=== PATIENT | male | born 1980 | race Caucasian/White ===

== ENCOUNTER 2018-06-13 01:05 | Emergency (ER) | payer SELFPAY ==
[2018-06-13 01:26] LABS: APPEARANCE,URINE SLIGHTLY-CLOUDY; BILIRUBIN,URINE NEGATIVE (NEGATIVE); COLOR,URINE YELLOW; GLUCOSE, URINE NEGATIVE (NEGATIVE); KETONES,URINE NEGATIVE (NEGATIVE); LEUKOCYTE ESTERASE,URINE LARGE (NEGATIVE); NITRITE,URINE NEGATIVE (NEGATIVE); PROTEIN,URINE NEGATIVE (NEGATIVE); URINE SPECIFIC GRAVITY 1.017; UROBILINOGEN,URINE NEGATIVE mg/dL (<2.0)
[2018-06-13] MEDS ORDERED: NORMAL SALINE 1000 ML 1,000 ML IV ONE (02:49)
[2018-06-13] MEDS ORDERED: KETOROLAC TROMETHAMINE INJ/PF 30 MG/1 ML SDV IV ONE (02:49)
[2018-06-13] MEDS ORDERED: CEFTRIAXONE INJ 1000 MG VIAL IV ONE (02:49)
[2018-06-13 03:03] LABS: ABSOLUTE BASOPHILS # (AUTO) 0.1 10^3/uL (0.0-0.2); ABSOLUTE EOSINOPHILS # (AUTO) 0.2 10^3/uL (0.0-0.6); ABSOLUTE LYMPHOCYTES (AUTO) 2.9 10^3/uL (0.5-4.7); ABSOLUTE MONOCYTES (AUTO) 0.8 10^3/uL (0.1-1.4); ABSOLUTE NEUT (AUTO) 6.9 10^3/uL (1.7-8.2); BASOPHILS % (AUTO) 0.5 % (0-2); EOSINOPHILS % (AUTO) 2.1 % (0-6); HEMATOCRIT 40.2 % (37.9-51.0); LYMPHOCYTES % (AUTO) 26.3 % (13-45); MEAN CORPUSCULAR HEMOGLOBIN 32.7 pg (27.0-33.4); MEAN CORPUSCULAR HGB CONC 34.7 g/dL (32.0-36.0); MEAN CORPUSCULAR VOLUME 94 fl (80-97); MONOCYTES % (AUTO) 7.5 % (3-13); PLATELET COUNT 285 10^3/uL (150-450); RED BLOOD COUNT 4.27 10^6/uL (4.35-5.55); RED CELL DISTRIBUTION WIDTH 13.1 % (11.5-14.0); SEGMENTED NEUTROPHILS % (AUTO) 63.6 % (42-78); TOTAL CELLS COUNTED % (AUTO) 100 %; WHITE BLOOD COUNT 10.9 10^3/uL (4.0-10.5)
[2018-06-13 03:08] LABS: ANION GAP 11 (5-19); BLOOD UREA NITROGEN 12 mg/dL (7-20); CALCIUM 9.9 mg/dL (8.4-10.2); CARBON DIOXIDE 24 mmol/L (22-30); CHLORIDE 106 mmol/L (98-107); GLUCOSE 101 mg/dL (75-110); POTASSIUM 4.4 mmol/L (3.6-5.0); SODIUM 141.1 mmol/L (137-145)
--- NOTE | 2018-06-13 03:18 | ER Document Report ---
ED General - General Chief Complaint: Flank Pain Stated Complaint: Flank pain Time Seen by Provider: 06/13/18 01:50 Notes: Patient is a 38-year-old female with a history of prior urethral strictures, recurrent pyelonephritis who presents with 2 days of bilateral flank pain, worse towards the left with associated dysuria and darkening of the urine. He states that he has had chills but no overt fevers. The pain in his back is described as a throbbing, constant, aching pain. Nothing improves or worsens his symptoms. He has not seen his general doctor regarding today's concerns. The patient also complains of 4-5 months of bloody stools but states this is a secondary concern and not the primary reason for his visit tonight. He has been referred to GI by his primary care doctor for a colonoscopy. - Related Data Allergies/Adverse Reactions: No Known Allergies Allergy (Verified 06/13/18 01:53) Past Medical History - General Information source: Patient - Social History Smoking Status: Never Smoker Frequency of alcohol use: None Drug Abuse: None Lives with: Spouse/Significant other Family History: Reviewed & Not Pertinent Patient has suicidal ideation: No Patient has homicidal ideation: No Renal/ Medical History: Denies: Hx Peritoneal Dialysis Past Surgical History: Reports: Hx Urinary Tract Surgery - urethroplasty Review of Systems - Review of Systems Notes: Constitutional: Negative for fever. HENT: Negative for sore throat. Eyes: Negative for visual changes. Cardiovascular: Negative for chest pain. Respiratory: Negative for shortness of breath. Gastrointestinal: Negative for abdominal pain, vomiting or diarrhea. Genitourinary: Positive for dysuria. Musculoskeletal: Positive for bilateral flank pain Skin: Negative for rash. Neurological: Negative for headaches, weakness or numbness. 10 point ROS negative except as marked above and in HPI. Physical Exam - Vital signs Vitals: Temp Pulse Resp BP Pulse Ox 97.3 F 79 16 121/83 97 06/13/18 01:05 06/13/18 01:05 06/13/18 01:05 06/13/18 01:05 06/13/18 01:05 Interpretation: Normal Notes: PHYSICAL EXAMINATION: GENERAL: Well-appearing, well-nourished and in no acute distress. HEAD: Atraumatic, normocephalic. EYES: Pupils equal round and reactive to light, extraocular movements intact, sclera anicteric, conjunctiva are normal. ENT: nares patent, oropharynx clear without exudates. Moderately dry mucous membranes. NECK: Normal range of motion, supple without lymphadenopathy LUNGS: Breath sounds clear to auscultation bilaterally and equal. No wheezes rales or rhonchi. HEART: Regular rate and rhythm without murmurs ABDOMEN: Soft, nontender, normoactive bowel sounds. No guarding, no rebound. No masses appreciated. Mild bilateral CVA tenderness. EXTREMITIES: Normal range of motion, no pitting or edema. No cyanosis. NEUROLOGICAL: No focal neurological deficits. Moves all extremities spontaneously and on command. PSYCH: Normal mood, normal affect. SKIN: Warm, Dry, normal turgor, no rashes or lesions noted. Course - Re-evaluation Re-evalutation: 06/13/18 03:21 Presentation is most consistent with acute pyelonephritis. Laboratories do demonstrate a large amount of white blood cells in the urine as well as bacteria. Patient has had constitutional symptoms at home. CVA tenderness is present on exam. The remainder laboratories are relatively unremarkable without evidence of renal dysfunction. I do not suspect an acute appendicitis, biliary pathology, pancreatitis, intra-abdominal abscess, or tubo-ovarian abscess based on history and examination. Patient has been given a dose of IV ceftriaxone and a liter of fluids. Patient is able to tolerate oral intake without difficulty. Will be discharged home on 7 day course of cephalexin. A urine culture has been sent. Patient did also complain of bloody stools although notes this is not an acute complaint tonight. His hemoglobin is normal. I have advised him to follow-up for the colonoscopy that has been scheduled by his primary care doctor. At this time will discharge with return precautions and follow-up recommendations. Verbal discharge instructions given a the bedside and opportunity for questions given. Medication warnings reviewed. Patient is in agreement with this plan and has verbalized understanding of return precautions and the need for primary care follow-up in the next 24-72 hours. - Vital Signs Vital signs: Temp Pulse Resp BP Pulse Ox 97.3 F 79 16 121/83 97 06/13/18 01:05 06/13/18 01:05 06/13/18 01:05 06/13/18 01:05 06/13/18 01:05 - Laboratory Result Diagrams: 06/13/18 02:45 06/13/18 02:45 Laboratory results interpreted by me: 06/13/18 06/13/18 01:07 02:45 WBC 10.9 H RBC 4.27 L Urine Blood SMALL H Ur Leukocyte Esterase LARGE H Discharge - Discharge Clinical Impression: Pyelonephritis, Flank pain Condition: Good Disposition: HOME, SELF-CARE Additional Instructions: You have been diagnosed with a condition called pyelonephritis which is an infection involving your kidneys and bladder. You have been given a dose of antibiotics here in the emergency department to help begin to treat this infection. Your also being sent home on antibiotics. Please start taking these later on today when you fill the prescription. Complete the course even if you feel better. Please return if you have persistent vomiting, pass out, have worsening pain, become unable to tolerate fluids, or have any other symptoms that are concerning to you. Please follow-up with your primary care physician in the next 24-48 hours. Prescriptions: Cephalexin Monohydrate [Keflex 500 mg Capsule] 500 mg PO Q6H 7 Days capsule
[2018-06-13] MEDS ORDERED: MORPHINE SULFATE IR 15 MG TABLET PO ONE (03:38)
[2018-06-13] MEDS ORDERED: ACETAMINOPHEN 325 MG TABLET PO ONE (03:38)
[2018-06-13 04:03] VITALS: BP 117/71
== END 2018-06-13 04:05 | disposition home or self-care (01) ==
LOC: ER 01:05
DX: N12 Tubulo-interstitial nephritis, not specified as acute or chronic (principal); K92.1 Melena
CPT/HCPCS: 99284; 96361; 96375; 96365; 36415; 87086; 85025; 87088; 80048; 81001; 87186; J1885; J0696; J7030

== ENCOUNTER 2018-12-20 13:49 | Emergency (ER) | payer SELFPAY ==
[2018-12-20 14:32] VITALS: BP 122/72
--- NOTE | 2018-12-20 14:43 | ER Document Report ---
ED Medical Screen (RME) - General Chief Complaint: Flank Pain Stated Complaint: FLANK PAIN Time Seen by Provider: 12/20/18 14:38 Notes: Patient is a 38-year-old male presenting with "kidney infection". States he is got low back pain and frequency of urination. States it feels like previous times and is had an infection in his kidneys. He denies fevers and shaking chills. Denies active flank pain. Denies nausea vomiting diarrhea. Also requesting to speak to somebody in the mental health area. Denies suicidal and homicidal ideation. I have treated and performed a rapid initial assessment of this patient. A comprehensive ED assessment and evaluation of the patient, analysis of test results and completion of medical decision making process will be conducted by additional ED providers. PHYSICAL EXAMINATION: GENERAL: Well-appearing, well-nourished and in no acute distress. A&Ox4. Answers questions appropriately. LUNGS: Breath sounds clear to auscultation bilaterally and equal. No wheezes rales or rhonchi. HEART: Regular rate and rhythm without murmurs, rubs, gallops. ABDOMEN: Soft, nondistended abdomen. No CVA tenderness Extremities: No cyanosis, clubbing, or edema b/l. NEUROLOGICAL: Normal speech, normal gait. PSYCH: Normal mood, normal affect. TRAVEL OUTSIDE OF THE [place] IN LAST 30 DAYS: No - Related Data Allergies/Adverse Reactions: No Known Allergies Allergy (Verified 12/20/18 14:37) Past Medical History - Social History Frequency of alcohol use: None Drug Abuse: Marijuana - Past Medical History Cardiac Medical History: Reports: Hx Heart Attack Renal/ Medical History: Denies: Hx Peritoneal Dialysis Past Surgical History: Reports: Hx Urinary Tract Surgery - urethroplasty Physical Exam - Vital signs Vitals: Temp Pulse Resp BP Pulse Ox 98.3 F 87 18 122/72 98 12/20/18 14:31 12/20/18 14:31 12/20/18 14:31 12/20/18 14:31 12/20/18 14:31 Course - Vital Signs Vital signs: Temp Pulse Resp BP Pulse Ox 98.3 F 87 18 122/72 98 12/20/18 14:31 12/20/18 14:31 12/20/18 14:31 12/20/18 14:31 12/20/18 14:31
[2018-12-20 15:23] LABS: ABSOLUTE EOSINOPHILS # (AUTO) 0.1 10^3/uL (0.0-0.6); ABSOLUTE LYMPHOCYTES (AUTO) 2.3 10^3/uL (0.5-4.7); ABSOLUTE MONOCYTES (AUTO) 0.7 10^3/uL (0.1-1.4); ABSOLUTE NEUT (AUTO) 7.3 10^3/uL (1.7-8.2); BASOPHILS % (AUTO) 0.4 % (0-2); EOSINOPHILS % (AUTO) 1.3 % (0-6); HEMATOCRIT 42.8 % (37.9-51.0); HEMOGLOBIN 14.8 g/dL (13.5-17.0); LYMPHOCYTES % (AUTO) 22.1 % (13-45); MEAN CORPUSCULAR HEMOGLOBIN 32.9 pg (27.0-33.4); MEAN CORPUSCULAR HGB CONC 34.7 g/dL (32.0-36.0); MEAN CORPUSCULAR VOLUME 95 fl (80-97); MONOCYTES % (AUTO) 6.8 % (3-13); PLATELET COUNT 302 10^3/uL (150-450); RED BLOOD COUNT 4.51 10^6/uL (4.35-5.55); RED CELL DISTRIBUTION WIDTH 13.4 % (11.5-14.0); SEGMENTED NEUTROPHILS % (AUTO) 69.4 % (42-78); TOTAL CELLS COUNTED % (AUTO) 100 %; WHITE BLOOD COUNT 10.5 10^3/uL (4.0-10.5)
[2018-12-20 15:25] LABS: APPEARANCE,URINE SLIGHTLY-CLOUDY; BILIRUBIN,URINE NEGATIVE (NEGATIVE); COLOR,URINE YELLOW; GLUCOSE, URINE NEGATIVE (NEGATIVE); KETONES,URINE NEGATIVE (NEGATIVE); LEUKOCYTE ESTERASE,URINE MODERATE (NEGATIVE); NITRITE,URINE NEGATIVE (NEGATIVE); PROTEIN,URINE 30 mg/dL (NEGATIVE); URINE SPECIFIC GRAVITY 1.015; UROBILINOGEN,URINE NEGATIVE mg/dL (<2.0)
[2018-12-20 15:40] LABS: ALANINE AMINOTRANSFERASE 33 U/L (21-72); ALBUMIN 4.5 g/dL (3.5-5.0); ALKALINE PHOSPHATASE 50 U/L (38-126); ANION GAP 10 (5-19); ASPARTATE AMINO TRANSFERASE 18 U/L (17-59); BILIRUBIN,DIRECT 0.3 mg/dL (0.0-0.4); BILIRUBIN,TOTAL 0.5 mg/dL (0.2-1.3); BLOOD UREA NITROGEN 8 mg/dL (7-20); CALCIUM 10.2 mg/dL (8.4-10.2); CARBON DIOXIDE 28 mmol/L (22-30); CHLORIDE 103 mmol/L (98-107); GLUCOSE 82 mg/dL (75-110); POTASSIUM 4.7 mmol/L (3.6-5.0); SODIUM 140.5 mmol/L (137-145); TOTAL PROTEIN 7.2 g/dL (6.3-8.2)
[2018-12-20 15:43] LABS: ACETAMINOPHEN < 10 ug/mL (10-30); ALCOHOL < 10 mg/dL (NONE DETECTED); SALICYLATE < 1.0 mg/dL (2.0-20.0)
[2018-12-20 15:47] LABS: URINE AMPHETAMINES SCREEN NEGATIVE; URINE BARBITURATES SCREEN NEGATIVE; URINE BENZODIAZEPINES SCREEN NEGATIVE; URINE COCAINE SCREEN NEGATIVE; URINE MARIJUANA (THC) SCREEN NEGATIVE; URINE METHADONE SCREEN NEGATIVE; URINE PHENCYCLIDINE SCREEN NEGATIVE
[2018-12-20] MEDS ORDERED: LIDOCAINE 1% INJ (10 MG/ML) 10 ML MDV INJ ONE (17:47)
[2018-12-20] MEDS ORDERED: CEFTRIAXONE INJ 1000 MG VIAL IM ONE (17:47)
[2018-12-20] MEDS ORDERED: HYDROMORPHONE HCL INJ/PF 2 MG/ML AMPULE SUBCUT ONE (17:48)
--- NOTE | 2018-12-20 17:52 | ER Document Report ---
ED General - General Chief Complaint: Flank Pain Stated Complaint: FLANK PAIN Time Seen by Provider: 12/20/18 14:38 Mode of Arrival: Ambulatory Information source: Patient TRAVEL OUTSIDE OF THE [place] IN LAST 30 DAYS: No - HPI Patient complains to provider of: Low back pain and dysuria Onset: Yesterday Onset/Duration: Sudden Quality of pain: Sharp Severity: Severe Pain Level: 5 Associated symptoms: denies: Chills, Fever Exacerbated by: Denies Relieved by: Denies Similar symptoms previously: No Recently seen / treated by doctor: No Notes: 38-year-old male coming in today with back pain and dysuria. Has history of some anatomical urogenital surgery in the past and gets UTIs and kidney infections. He does not have fevers or chills. No nausea or vomiting. No flank pain. Also wants to voluntarily talk to somebody in the psych department. He is not suicidal or homicidal. - Related Data Allergies/Adverse Reactions: No Known Allergies Allergy (Verified 12/20/18 14:37) Past Medical History - General Information source: Patient - Social History Smoking Status: Current Every Day Smoker Frequency of alcohol use: None Drug Abuse: Marijuana Family History: Reviewed & Not Pertinent Patient has suicidal ideation: No Patient has homicidal ideation: No - Past Medical History Cardiac Medical History: Reports: Hx Heart Attack Renal/ Medical History: Denies: Hx Peritoneal Dialysis Past Surgical History: Reports: Hx Urinary Tract Surgery - urethroplasty Review of Systems - Review of Systems Notes: Constitutional: No fevers. No chills. EENT: No eye redness. No eye pain. No ear pain. No sore throat. Cardiovascular: No chest pain. No palpitations. Respiratory: No cough. No shortness of breath. No respiratory distress. Gastrointestinal: No abdominal pain. No nausea, vomiting, or diarrhea. Genitourinary: Atraumatic. No lesions. No pain. No discharge. Musculoskeletal: Atraumatic. No swelling. No deformities. Positive for low back pain Skin: No rash or lesions. Lymphatic: No swollen lymph nodes. Neurologic: No headache. No syncope. Psychiatric: No suicidal or homicidal ideation. Physical Exam - Vital signs Vitals: Temp Pulse Resp BP Pulse Ox 98.3 F 87 18 122/72 98 12/20/18 14:31 12/20/18 14:31 12/20/18 14:31 12/20/18 14:31 12/20/18 14:31 - Notes Notes: General: Well-developed, well-nourished. In no acute distress. Non-toxic appearing. Cardiac: Well-perfused. Regular rate and rhythm. No murmurs, rubs, or gallops. Pulmonary: No respiratory distress. No cyanosis. Bilateral lung fiels are clear to auscultation. Abdominal: Non-distended. Non-rigid. Bowels sounds are present in all four quadrants. No guarding or rebound. HEENT: Head is atraumatic. Conjunctivae not reddened. No tearing. PERRL. EOMI. Orbits atraumatic. No periorbital swelling or erythema. Oropharynx is without erythema, swelling, or exudates. Neck: Supple. No adenopathy. No meningismus. Dermatologic: Warm with good turgor. No rash. Atraumatic. Chest: Atraumatic. No chest wall tenderness to palpation. Musculoskeletal: Moves all extremities well. No range of motion deficits. no muscular or joint tenderness. No paraspinal muscle tenderness. no midline spinal tenderness or step-off. Genitourinary: Examination deferred Neurologic: No gross neurologic deficits. Psychiatric: Normal mood. Denies having suicidal and homicidal ideation Course - Re-evaluation Re-evalutation: 12/20/18 17:52 We will go ahead and treat him for his urinary infection. Send him home with antibiotic prescriptions and pain medication. Unfortunately, the behavioral health consultants are not taking any consults today at this point. Patient is offered to stay overnight in the psychiatric unit. He does not want to be here overnight. He will come back next time earlier in the day so that he can be seen on the same visit. Again he reiterates he is not suicidal or homicidal. - Vital Signs Vital signs: Temp Pulse Resp BP Pulse Ox 98.3 F 87 18 122/72 98 12/20/18 14:31 12/20/18 14:31 12/20/18 14:31 12/20/18 14:31 12/20/18 14:31 - Laboratory Result Diagrams: 12/20/18 14:50 12/20/18 14:50 Laboratory results interpreted by me: 12/20/18 12/20/18 14:50 14:50 Urine Protein 30 H Urine Blood MODERATE H Ur Leukocyte Esterase MODERATE H Salicylates < 1.0 L Acetaminophen < 10 L Discharge - Discharge Clinical Impression: History of behavioral and mental health problems Back pain Qualifiers: Back pain location: low back pain Chronicity: unspecified Back pain laterality: unspecified Sciatica presence: without sciatica Qualified Code(s): M54.5 - Low back pain UTI (urinary tract infection) Qualifiers: Urinary tract infection type: site unspecified Hematuria presence: without hematuria Qualified Code(s): N39.0 - Urinary tract infection, site not specified Condition: Good Disposition: HOME, SELF-CARE Instructions: Cephalexin ([facility]), Urinary Tract Infection ([facility]), Low Back Pain ([facility]) Additional Instructions: He may return at any time to the emergency department to be evaluated for mental health. Unfortunately, today the mental health consultants or not taking any more consultations. You have declined to stay here overnight and be seen in the morning. We will do our best to get resources for you for mental health in the area. Always remember if you are feeling suicidal or homicidal that you need to call 911 or come immediately to the hospital. Be sure to take your antibiotics as directed for the full duration. Pain medication as needed. Prescriptions: Cephalexin Monohydrate [Keflex 500 mg Capsule] 500 mg PO Q6H 7 Days #28 capsule Referrals: [facility] [Provider Group] - Follow up as needed
[2018-12-20] MEDS ORDERED: HYDROCODONE/ACETAMINOPHEN 5-325 MG (6 TAB/ER DISP) PO PRN (17:58)
== END 2018-12-20 18:42 | disposition home or self-care (01) ==
LOC: ER 13:49
DX: N39.0 Urinary tract infection, site not specified (principal); M54.5 Low back pain; R30.0 Dysuria; F17.200 Nicotine dependence, unspecified, uncomplicated; F12.10 Cannabis abuse, uncomplicated; I25.2 Old myocardial infarction; Z98.890 Other specified postprocedural states
CPT/HCPCS: 99284; 96372; 36415; 80307 ×4; 85025; 80053; 81001; J1170; J0696